=== PATIENT | female | born 1970 ===

== ENCOUNTER 2018-11-12 13:34 | Outpatient (CLI) | payer OTHER ==
--- NOTE | 2018-11-12 14:43 | ULT ---
FExam: Pelvic ultrasound HISTORY: Pelvic pain COMPARISON: None TECHNIQUE: Transabdominal and endovaginal imaging of the pelvis is performed. Ovaries are interrogate d with grayscale, color flow, Doppler imaging and spectral waveform analysis. FINDINGS: Uterus is identified measuring 5.2 x 4.3 x 7.1 cm. Uterus is retroflexed. In the posterior myometrium , there is a 3.2 x 1.2 x 2.4 cm solid echotexture focus which may represent a leiomyoma. Exact border s are difficult to define. Limited evaluation endometrium. Right ovary is not seen. No mass or fluid in the right adnexa. Left ovary has a normal echotexture with a 0.8 cm follicle. Overall the left ovary measures 1.7 x 2.1 x 1.8 cm. No free fluid. Ovarian Doppler: Vascular flow to the left ovary. IMPRESSION: Retroverted uterus with possible posterior uterine leiomyoma. Pelvic MRI is recommended. Transcribed Date/Time: 11/12/2018 2:51 PM
== END 2018-11-12 13:35 | disposition home or self-care (01) ==
LOC: BICULT 13:34
PROVIDERS: ATTEND Physician Assistant
DX: R10.2 Pelvic and perineal pain (principal)
CPT/HCPCS: 76856